=== PATIENT | male | born 1995 | race Caucasian/White ===

== ENCOUNTER 2025-07-23 17:59 | Emergency (ER) | payer OTHER ==
[~2025-07-23] VITALS: Ht 172.7 cm; Wt 77.0 kg
[2025-07-23 18:31] VITALS: TEMP 37.1; O2SAT 100
[2025-07-23] MEDS: IBUPROFEN 400MG TABLET PO ONE (22:17)
[2025-07-23] MEDS ORDERED: IBUP-2028 MT (23:27)
[2025-07-24 00:10] VITALS: BP 142/96; PULSE 80; RESP 18; O2SAT 100
== END 2025-07-24 00:12 | disposition home or self-care (01) ==
LOC: ER 17:59
DX: S09.90XA Unspecified injury of head, initial encounter (principal); I10 Essential (primary) hypertension; W19.XXXA Unspecified fall, initial encounter; Y93.89 Activity, other specified; Y92.89 Other specified places as the place of occurrence of the external cause; Y99.8 Other external cause status
CPT/HCPCS: 99284